=== PATIENT | female | born 1950 ===

== ENCOUNTER 2023-12-24 10:39 | Emergency (ER) | payer MEDICARE, OTHER, SELFPAY ==
--- NOTE | ~2023-12-24 | XR_ITS ---
XR wrist LT min 3V Ordering provider: JACKIE Baez History: . fall onto wrist this morning, pain across wrist . Comparison: None. FINDINGS: BONES: Fracture in distal metaphysis of the radius is noted. No significant change in alignment is se en. No other definite fractures. JOINT SPACES: Well maintained. 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 SOFT TISSUES: Normal. IMPRESSION: Fracture distal metaphysis of the radius with no significant change in alignment. Reviewed, dictated and finalized at location A. IMPRESSION: Fracture distal metaphysis of the radius with no significant change in alignmen bayron
[2023-12-24 10:50] VITALS: BP 146/74; PULSE 72; RESP 18; TEMP 36.4; O2SAT 99
--- NOTE | 2023-12-24 11:10 | ED.UPPEXIN ---
HPI - Extremity Injury (Upper) General Chief Complaint: Extremity Injury, Upper Stated Complaint: Injured Wrist Time Seen by Provider: 12/24/23 11:05 Source: patient and RN notes reviewed Mode of arrival: ambulatory Limitations: no limitations History of Present Illness HPI narrative: Patient presents today with a left wrist injury. Approximately 3 hours prior to exam, patient tripped and fell in her yard onto outstretched hand. Denies numbness or tingling. Currently rates her pain 6/10 and has applied ice and taken Tylenol prior to arrival. Related Data Home Medications Medication Instructions Recorded Confirmed pravastatin 80 mg tablet 80 mg DIRECTED 12/24/23 12/24/23 sertraline 50 mg tablet 75 mg DIRECTED 12/24/23 12/24/23 Allergies Allergy/AdvReac Type Severity Reaction Status Date / Time No Known Allergies Allergy Verified 12/24/23 10:48 Review of Systems Review of Systems: CONSTITUTIONAL: Denies body aches, fever, chills, or sweats. EYES: Denies visual changes, redness, or discharge. ENT: Denies rhinorrhea, congestion, sore throat, or otalgia. CARDIOVASCULAR: Denies chest pain, palpitations, or edema. RESPIRATORY: Denies cough or dyspnea. GASTROINTESTINAL: Denies abdominal pain, nausea, vomiting, or diarrhea. GENITOURINARY: Denies dysuria or hematuria. SKIN: Denies rash, itching, or wounds. MUSCULOSKELETAL: Denies back pain, or myalgia.+ left wrist injury NEUROLOGIC: Denies headache, numbness, tingling, or weakness. PSYCH: Denies depression or anxiety. [facility] Past Medical History Medical History (Updated 12/24/23 @ 11:40 by Blanca Woodard, [facility], ) High cholesterol Comments At time of signature, I have reviewed and agree with nursing past medical, surgical, social and family history unless otherwise noted. Please see nursing chart for further information. There is no relevant family history pertinent to the presenting complaint Exam Narrative: GENERAL: Well-appearing, well-nourished, and in no acute distress. HEAD: Normocephalic, atraumatic. EYES: EOMI. No redness or drainage. Conjunctivae normal. ENT: Mucous membranes pink and moist. NECK: Normal AROM. CHEST: No respiratory distress. EXTREMITIES: Left wrist: Mild tenderness about the wrist with mild edema. No ecchymosis or erythema noted. Distal sensation intact. Capillary refill normal. Radial pulse normal. Full range of motion with little increased pain. No snuffbox tenderness. SKIN: Warm, dry, no rash. Capillary refill normal. Normal skin turgor. NEURO: No focal deficits. Alert and oriented x3. Gait steady. PSYCH: Normal affect. No signs of depression or anxiety. Course Course Level of Care: Express Care Visit Vital Signs Vital signs: Vital Signs Temperature 97.5 F L 12/24/23 10:50 Pulse Rate 72 12/24/23 10:50 Respiratory Rate 18 12/24/23 10:50 Blood Pressure 146/74 H 12/24/23 10:50 Pulse Oximetry 99 12/24/23 10:50 Oxygen Delivery Room Air 12/24/23 10:50 Temperature 97.5 F L 12/24/23 10:50 Pulse Rate 72 12/24/23 10:50 Respiratory Rate 18 12/24/23 10:50 Blood Pressure 146/74 H 12/24/23 10:50 Pulse Oximetry 99 12/24/23 10:50 Oxygen Delivery Room Air 12/24/23 10:50 Reviewed MDM - Extremity Injury (Upper) MDM Narrative Medical decision making narrative: X-ray shows nondisplaced distal radius fracture. Patient placed in OCL and sling. States she does have her own ortho that she would like to follow up with. Anticipatory guidance given. Prescription for norco sent for severe pain. Differential Diagnosis Differential diagnosis: Likely sprain and strain of wrist, fracture of wrist and other Imaging Data Radiologist's impression: ITS Impressions Wrist X-Ray 12/24/23 11:18 IMPRESSION: Fracture distal metaphysis of the radius with no significant change in alignment. Critical Care Time Critical Care Time Critical Care Time: No D
== END 2023-12-24 11:46 | disposition home or self-care (01) ==
PROVIDERS: Emergency Provider Nurse Practitioner
DX: S52.502A Unspecified fracture of the lower end of left radius, initial encounter for closed fracture (principal); W01.0XXA Fall on same level from slipping, tripping and stumbling without subsequent striking against object, initial encounter; E78.00 Pure hypercholesterolemia, unspecified
CPT/HCPCS: 29125; 73110; 99214; A4565; G0463